=== PATIENT | female | born 1960 | race Caucasian/White ===

== ENCOUNTER → 2020-07-24 | Day surgery (SDC) | payer OTHER ==
[~2020-07-24] MED LIST: ANDROGEL1.25 GM VG; DHEA25 MG PO; FENTANYL CITRATE/PF 100MCG/2 ML INJ ONE; FLONASE ALLERG9.9 ML; K FORCE PO; MIDAZOLAM HCL 2 MG/2 ML VIAL ONE; NP THYROID60 MG PO; OMEGA 3 1,0001 EACH PO; POTASSIUM CITR10 MEQ PO; PREGNENOLONE PO; PROBIOTIC & AC1 EACH PO; PROGESTERONE200 MG PO; PROPOFOL IV EMULSION 10 MG/ML 20 ML VIAL ONE; SELENIUM200 MC2 PO; VITAMIN C1000 MG PO; VITAMIN D310 MCG PO; ZINC SULFATE220 M1 PO; [UNRECOGNIZED DRUG - OTHER] PO; [UNRECOGNIZED DRUG - OTHER] PO
[2020-07-24 13:10] VITALS: BP 118/77
== END | disposition home or self-care (01) ==
LOC: OR 09:20
PROVIDERS: ATTEND Internal Medicine Gastroenterology
DX: K29.00 Acute gastritis without bleeding (principal); K63.5 Polyp of colon; K44.9 Diaphragmatic hernia without obstruction or gangrene; K64.8 Other hemorrhoids; Z71.3 Dietary counseling and surveillance; E66.3 Overweight; K20.9 Esophagitis, unspecified; E03.9 Hypothyroidism, unspecified; Z88.0 Allergy status to penicillin; Z68.27 Body mass index [BMI] 27.0-27.9, adult
CPT/HCPCS: 43239; 45380; 93005; J2250; J2704; J3010; 45384